=== PATIENT | female | born 1975 | race Caucasian/White ===

== ENCOUNTER 2023-09-26 08:41 | Outpatient (CLI) | payer OTHER, SELFPAY ==
[2023-09-26 18:29] LABS: Coronavirus 19, PCR Not Detected (NotDetected); Influenza A, PCR Not Detected (NotDetected); Influenza B, PCR Not Detected (NotDetected)
== END 2023-09-26 23:59 | disposition home or self-care (01) ==
LOC: LAB.DROPOF 09-27 09:53
PROVIDERS: PCP Nurse Practitioner; Visit Provider Nurse Practitioner
DX: R09.89 Other specified symptoms and signs involving the circulatory and respiratory systems (principal); R05.1 Acute cough; H92.03 Otalgia, bilateral
CPT/HCPCS: 87636

== ENCOUNTER 2023-10-17 18:00 | Outpatient (CLI) | payer OTHER, SELFPAY ==
[2023-10-17 18:24] LABS: Basophils # 0.3 K/mm3 (0-0.2); Basophils % 3.1 % (0.1-2.0); Eosinophils # 0.2 K/mm3 (0.0-0.4); Eosinophils % 2.2 % (0.1-12.0); Hematocrit 49.1 % (37.0-47.0); Hemoglobin 15.9 g/dL (12.2-16.2); Lymphocytes # 2.9 K/mm3 (0.7-4.5); Lymphocytes % 34.1 % (10-50); Mean Corpuscular HGB Conc 32.5 g/dL (31.8-35.4); Mean Corpuscular Hemoglobin 34.8 pg (27.0-31.2); Mean Corpuscular Volume 107.1 fl (81-99); Mean Platelet Volume 7.8 fl (7.4-10.4); Monocytes # 0.4 K/mm3 (0.1-1.0); Monocytes % 4.1 % (1.7-9.3); Neutrophils # 4.7 K/mm3 (1.8-7.8); Neutrophils % 56.5 % (37.0-80.0); Platelet Count 280 K/mm3 (142-424); Red Blood Count 4.59 M/mm3 (4.20-5.40); White Blood Count 8.4 K/mm3 (4.8-10.8)
[2023-10-17 18:50] LABS: Alanine Aminotransferase 108 U/L (12-78); Albumin Level 4.9 g/dl (3.5-5.0); Albumin/Globulin Ratio 1.6 (1.1-1.8); Alkaline Phosphatase 120 U/L (38-126); Anion Gap 17.3 mEq/L (5-15); Aspartate Amino Transferase 99 U/L (14-36); Bilirubin,Total 0.5 mg/dl (0.2-1.3); Blood Urea Nitrogen 12 mg/dl (7-17); Calcium 9.9 mg/dl (8.4-10.2); Carbon Dioxide 29 mmol/L (22.0-30.0); Chloride 102 mmol/L (98-107); Estimated Glomerular Filt Rate 89 ml/min (>60); GFR (African American) 108 ML/MIN (>60); Globulin 3.1 g/dL (1.3-3.2); Glucose 78 mg/dl (74-100); Potassium 4.3 mmoL/L (3.5-5.1); Sodium 144 mmol/L (136-145)
[2023-10-17 18:57] LABS: Ethyl Alcohol 308 mg/dl (0-10); Hemoglobin A1C 5.1 % (4.0-6.0)
[2023-10-17 19:05] LABS: 25-OH Vitamin D, Total 23.8 ng/mL (30-100)
[2023-10-17 19:24] LABS: Thyroid Stimulating Hormone 0.86 uIU/mL (0.465-4.68)
[2023-10-17 19:43] LABS: Vitamin B12 868 pg/mL (239-931)
[2023-10-19 13:47] LABS: Estradiol <5.0 pg/mL (.); LH 62.7 mIU/mL (.)
[2023-10-22 19:18] LABS: Estrogen 78 pg/mL (.)
== END 2023-10-17 23:59 | disposition home or self-care (01) ==
LOC: LAB.DROPOF 10-18 10:37
PROVIDERS: PCP Nurse Practitioner; Visit Provider Nurse Practitioner
DX: R53.83 Other fatigue (principal); F32.A Depression, unspecified; F10.20 Alcohol dependence, uncomplicated; R09.89 Other specified symptoms and signs involving the circulatory and respiratory systems
CPT/HCPCS: 80050; 80053; 80320; 82306; 82607; 82670; 82672; 83001; 83002; 83036; 84443; 85025; G0480

== ENCOUNTER 2023-11-13 10:04 | Outpatient (CLI) | payer OTHER, SELFPAY ==
[2023-11-13 18:50] LABS: Basophils # 0.1 K/mm3 (0-0.2); Basophils % 1.3 % (0.1-2.0); Eosinophils # 0.4 K/mm3 (0.0-0.4); Eosinophils % 4.7 % (0.1-12.0); Hematocrit 47.2 % (37.0-47.0); Hemoglobin 15.3 g/dL (12.2-16.2); Lymphocytes % 24.7 % (10-50); Mean Corpuscular HGB Conc 32.5 g/dL (31.8-35.4); Mean Corpuscular Hemoglobin 34.3 pg (27.0-31.2); Mean Corpuscular Volume 105.7 fl (81-99); Mean Platelet Volume 8.5 fl (7.4-10.4); Monocytes # 0.5 K/mm3 (0.1-1.0); Monocytes % 5.9 % (1.7-9.3); Neutrophils # 5.1 K/mm3 (1.8-7.8); Neutrophils % 63.4 % (37.0-80.0); Platelet Count 287 K/mm3 (142-424); Red Blood Count 4.47 M/mm3 (4.20-5.40); Red Cell Distribution Width 12.9 % (11.5-17.5)
[2023-11-13 19:00] LABS: Alanine Aminotransferase 23 U/L (12-78); Albumin Level 4.3 g/dl (3.5-5.0); Albumin/Globulin Ratio 1.7 (1.1-1.8); Alkaline Phosphatase 74 U/L (38-126); Anion Gap 15.1 mEq/L (5-15); Aspartate Amino Transferase 29 U/L (14-36); Bilirubin,Total 0.4 mg/dl (0.2-1.3); Blood Urea Nitrogen 16 mg/dl (7-17); Calcium 9.8 mg/dl (8.4-10.2); Carbon Dioxide 26 mmol/L (22.0-30.0); Chloride 104 mmol/L (98-107); Estimated Glomerular Filt Rate 89 ml/min (>60); GFR (African American) 108 ML/MIN (>60); Globulin 2.6 g/dL (1.3-3.2); Glucose 89 mg/dl (74-100); Potassium 4.1 mmoL/L (3.5-5.1); Sodium 141 mmol/L (136-145); Total Protein,Serum 6.9 g/dl (6.3-8.2)
== END 2023-11-13 23:59 | disposition home or self-care (01) ==
LOC: LAB.DROPOF 11-14 10:04
PROVIDERS: PCP Nurse Practitioner; Visit Provider Nurse Practitioner
DX: F10.20 Alcohol dependence, uncomplicated (principal); F32.A Depression, unspecified
CPT/HCPCS: 80053; 85025

== ENCOUNTER 2024-01-29 11:00 | Outpatient (CLI) | payer OTHER, SELFPAY ==
[2024-01-29 19:06] LABS: Alanine Aminotransferase 18 U/L (12-78); Albumin Level 3.8 g/dl (3.5-5.0); Albumin/Globulin Ratio 1.4 (1.1-1.8); Alkaline Phosphatase 71 U/L (38-126); Aspartate Amino Transferase 23 U/L (14-36); Bilirubin,Total 0.4 mg/dl (0.2-1.3); Blood Urea Nitrogen 12 mg/dl (7-17); Calcium 9.5 mg/dl (8.4-10.2); Carbon Dioxide 26 mmol/L (22.0-30.0); Chloride 109 mmol/L (98-107); Cholesterol 210 mg/dl (140-200); Estimated Glomerular Filt Rate 107 ml/min (>60); GFR (African American) 129 ML/MIN (>60); Globulin 2.7 g/dL (1.3-3.2); Glucose 109 mg/dl (74-100); HDL Cholesterol 52 mg/dl (40-60); Sodium 138 mmol/L (136-145); Total Protein,Serum 6.5 g/dl (6.3-8.2); Triglycerides 92 mg/dl (30-150); VLDL Cholesterol 18 mg/dL (0-40)
[2024-01-29 19:16] LABS: Direct LDL Cholesterol 119.81 mg/dL (100-129)
[2024-01-29 19:24] LABS: Hemoglobin A1C 5.1 % (4.0-6.0)
[2024-01-29 19:26] LABS: 25-OH Vitamin D, Total 47.8 ng/mL (30-100)
[2024-01-29 19:36] LABS: Thyroid Stimulating Hormone 2.03 uIU/mL (0.465-4.68)
[2024-01-29 19:55] LABS: Vitamin B12 952 pg/mL (239-931)
[2024-01-29 21:53] LABS: Basophils # 0.1 K/mm3 (0-0.2); Eosinophils # 0.3 K/mm3 (0.0-0.4); Eosinophils % 3.5 % (0.1-12.0); Hematocrit 48.4 % (37.0-47.0); Hemoglobin 14.9 g/dL (12.2-16.2); Lymphocytes # 1.9 K/mm3 (0.7-4.5); Lymphocytes % 20.2 % (10-50); Mean Corpuscular HGB Conc 30.7 g/dL (31.8-35.4); Mean Corpuscular Hemoglobin 31.3 pg (27.0-31.2); Mean Corpuscular Volume 101.8 fl (81-99); Monocytes # 0.6 K/mm3 (0.1-1.0); Monocytes % 6.2 % (1.7-9.3); Neutrophils # 6.6 K/mm3 (1.8-7.8); Neutrophils % 69.3 % (37.0-80.0); Platelet Count 278 K/mm3 (142-424); Red Blood Count 4.75 M/mm3 (4.20-5.40); Red Cell Distribution Width 12.9 % (11.5-17.5); White Blood Count 9.5 K/mm3 (4.8-10.8)
== END 2024-01-29 23:59 | disposition home or self-care (01) ==
LOC: LAB.DROPOF 01-30 10:27
PROVIDERS: PCP Nurse Practitioner; Visit Provider Nurse Practitioner
DX: Z13.220 Encounter for screening for lipoid disorders (principal); Z13.1 Encounter for screening for diabetes mellitus; F10.20 Alcohol dependence, uncomplicated; F32.A Depression, unspecified; E55.9 Vitamin D deficiency, unspecified; Z68.24 Body mass index [BMI] 24.0-24.9, adult
CPT/HCPCS: 80050; 80053; 80061; 82306; 82607; 83036; 84443; 85025

== ENCOUNTER 2024-07-01 14:55 | Outpatient (CLI) | payer OTHER, SELFPAY ==
[2024-07-01 18:10] LABS: Influenza A, PCR Not Detected (NotDetected); Influenza B, PCR Not Detected (NotDetected)
[2024-07-01 19:55] LABS: Coronavirus 19, PCR Detected (NotDetected)
== END 2024-07-01 23:59 | disposition home or self-care (01) ==
LOC: LAB.DROPOF 07-03 10:42
PROVIDERS: PCP Nurse Practitioner; Visit Provider Nurse Practitioner
DX: R11.2 Nausea with vomiting, unspecified (principal); R52 Pain, unspecified; J06.9 Acute upper respiratory infection, unspecified; Z72.0 Tobacco use
CPT/HCPCS: 87636

== ENCOUNTER 2024-12-24 15:21 | Outpatient (CLI) | payer OTHER, SELFPAY ==
[2024-12-24 19:08] LABS: Hematocrit 41.3 % (37.0-47.0); Hemoglobin 14.1 g/dL (12.2-16.2); Immature Granulocytes % 0.3 %; Mean Corpuscular HGB Conc 34.1 g/dL (31.8-35.4); Mean Corpuscular Hemoglobin 30.3 pg (27.0-31.2); Mean Corpuscular Volume 88.8 fl (81-99); Nucleated Red Blood Cells % 0 %; Platelet Count 178 K/mm3 (142-424); Red Blood Count 4.65 M/mm3 (4.20-5.40); Red Cell Distribution Width-SD 43.8 fL; White Blood Count 11.9 K/mm3 (4.8-10.8)
[2024-12-24 20:14] LABS: Alanine Aminotransferase 25 U/L (12-78); Albumin Level 4.7 g/dl (3.5-5.0); Albumin/Globulin Ratio 2.0 (1.1-1.8); Alkaline Phosphatase 76 U/L (38-126); Anion Gap 7.8 mEq/L (5-15); Aspartate Amino Transferase 33 U/L (14-36); Bilirubin,Total 0.3 mg/dl (0.2-1.3); Blood Urea Nitrogen 12 mg/dl (7-17); Calcium 9.5 mg/dl (8.4-10.2); Carbon Dioxide 28 mmol/L (22.0-30.0); Chloride 105 mmol/L (98-107); Creatinine,Serum 0.70 mg/dl (0.52-1.04); Estimated Glomerular Filt Rate 89 ml/min (>60); GFR (African American) 108 ML/MIN (>60); Globulin 2.3 g/dL (1.3-3.2); Glucose 84 mg/dl (74-100); Magnesium 2.0 mg/dl (1.6-2.3); Phosphorous 3.2 mg/dl (2.5-4.5); Potassium 3.8 mmoL/L (3.5-5.1); Sodium 137 mmol/L (136-145); Total Protein,Serum 7.0 g/dl (6.3-8.2)
[2024-12-24 20:31] LABS: Free T4 (Free Thyroxine) 1.14 ng/dl (0.78-2.19)
[2024-12-24 20:44] LABS: Thyroid Stimulating Hormone 1.13 uIU/mL (0.465-4.68)
[2024-12-24 21:04] LABS: Hepatitis C Ab Qual. W/ RFX NEGATIVE (Negative); Vitamin B12 981 pg/mL (239-931)
--- OUTSIDE RECORDS SUMMARY | 2024-12-25 10:57 | XMS_ITS | Patient Health Record ---
Author Organization [facility] enter Address [address] [id number] Care Team Providers Care Electric Golf Cart Repairers Name Role Phone Daiana Gonzales Unavailable [phone] ALLERGIES Allergen (clinical drug ingredient) Drug/Non Drug Allergy documented on EMR Reaction Allergy Type Onset Date Status codeine Codeine Sulfate Emesis Drug Allergy A ctive REASON FOR REFERRAL No Information SOCIAL HISTORY Tobacco Use: Social History Observation Description Date Details (start date - stop date) Current Smoker NA - NA Sex Assigned At : Social History Observation Description Sex Assigned At Unknown Smoking (13 and older): Question Answer Notes Smoking Status: Current Smoker PROBLEMS Problem Type ICD Code Onset Dates Problem Status W/U Status Risk SNOMED Code Notes Problem Chronic periodontitis (K05.30) Active confirmed Chronic periodontitis (5613446) PLAN OF TREATMENT No Information Insurance Providers Payer Name Payer Address Payer Phone Subscriber Number Group Number Insured Name Patient Relationship to Insured Coverage Start Date Coverage End Date MEDICAID MEDICAL [address] [place] [address] [id number] CORAZON JOHNSON Self - patient is the insured 9 3 MEDICA[place] [address] [place] [address] [id number] CORAZON JOHNSON Self - patient is the insured 9 3 MEDICAL (GENERAL) HISTORY Medical History History ICD Code ETOH use d/o Tobacco dependency Surgical History Surgery Date(Month/Year) L knee Hospitalization History Reason Date(Month/Year) [facility]--ICU for acute hypoxic r espiratory failure w/respiratory alkalosis 05/21/19-05/27/19
[2024-12-25 17:11] LABS: Adenovirus F 40/41, stool Not Detected (NotDetected); Clostridium Difficile A/B, PCR Not Detected (NotDetected); Cyclospora Cayetanesis Not Detected (NotDetected); Plesimonas Shigalloides, PCR Not Detected (NotDetected); Salmonella, PCR Not Detected (NotDetected); Shiga-like toxin E coli Not Detected (NotDetected); Shigella Enterovasive E coli Not Detected (NotDetected); Vibrio, PCR Not Detected (NotDetected); Yersinia Entercolitica, PCR Not Detected (NotDetected)
[2024-12-26 09:12] LABS: Hepatitis B Surface Antigen Negative (Negative)
== END 2024-12-24 23:59 | disposition home or self-care (01) ==
LOC: LAB.DROPOF 12-25 10:46
PROVIDERS: PCP Nurse Practitioner; Visit Provider Nurse Practitioner
DX: R19.7 Diarrhea, unspecified (principal); R63.4 Abnormal weight loss; Z11.59 Encounter for screening for other viral diseases
CPT/HCPCS: 80053; 82607; 83735; 84100; 84439; 84443; 85025; 86803; 87340; 87389; 87507

== ENCOUNTER 2024-12-30 08:01 | Outpatient (CLI) | payer OTHER, SELFPAY ==
--- NOTE | 2024-12-30 08:00 | US_ITS ---
FINAL REPORT TECHNIQUE: Ultrasound images of the thyroid were obtained. CLINICAL HISTORY: thyroid nodule FINDINGS: The right lobe of the thyroid measures 5.1 x 1.3 x 0.9 cm. It is normal in echogenicity. The left lobe of the thyroid measures 5.0 x 1.4 x 1.3 cm. It is normal in echogenicity. IMPRESSION: Unremarkable exam. Reviewed, Interpreted and Dictated by Delvin Lai MD Transcribed by Araceli Hansen Authenticated and [facility]
--- OUTSIDE RECORDS SUMMARY | 2024-12-30 08:04 | XMS_ITS | Patient Health Record ---
Author Organization [employer] enter Address [address] [place] [id number] Care Team Providers Care Executive Sales Manager Name Role Phone Daiana Gonzales Unavailable [phone] ALLERGIES Allergen (clinical drug ingredient) Drug/Non Drug [...] Notes Problem Chronic periodontitis (K05.30) Active confirmed PLAN OF TREATMENT No Information Insurance Providers Payer Name Payer Address Payer Phone Subscriber Number Group Number Insured Name Patient Relationship to Insured Coverage Start Date Coverage End Date MEDICAID MEDICAL [address] [place] [address] [id number] CORAZON JOHNSON Self - patient is the insured 9 3 MEDICAID [place]ENTAL [address] [place] [address] [phone] [id number] CORAZON JOHNSON Self - patient is the insured 9 3 MEDICAL (GENERAL) HISTORY Medical History History ICD Code ETOH use d/o Tobacco dependency Surgical History Surgery Date(Month/Year) L knee Hospitalization History Reason Date(Month/Year) [facility]--ICU for acute hypoxic r espiratory failure w/respiratory alkalosis 05/21/19-05/27/19
== END 2024-12-30 23:59 | disposition home or self-care (01) ==
LOC: RAD 08:02
PROVIDERS: PCP Nurse Practitioner; Visit Provider Nurse Practitioner
DX: E04.1 Nontoxic single thyroid nodule (principal)
CPT/HCPCS: 76536

== ENCOUNTER 2025-01-03 07:40 | Outpatient (CLI) | payer OTHER, SELFPAY ==
--- OUTSIDE RECORDS SUMMARY | 2025-01-03 07:44 | XMS_ITS | Patient Health Record ---
Author Organization [facility] enter Address [address] [place] [id number] Care Team Providers Care Cognos Name Role Phone Daiana Gonzales Unavailable [phone] ALLERGIES Allergen (clinical drug ingredient) Drug/Non Drug [...] Chronic periodontitis (K05.30) Active confirmed Chronic periodontitis (7524111) PLAN OF TREATMENT No Information Insurance Providers Payer Name Payer Address Payer Phone Subscriber Number Group Number Insured Name Patient Relationship to Insured Coverage Start Date Coverage End Date MEDICAID MEDICAL [address] [place] [address] [id number] CORAZON JOHNSON Self - patient is the insured 9 3 [place] [address] [place] [address] [id number] CORAZON JOHNSON Self - patient is the insured 9 3 MEDICAL (GENERAL) HISTORY Medical History History ICD Code ETOH use d/o Tobacco dependency Surgical History Surgery Date(Month/Year) L knee Hospitalization History Reason Date(Month/Year) [facility]--ICU for acute hypoxic r espiratory failure w/respiratory alkalosis 05/21/19-05/27/19
[2025-01-03] MEDS: SODIUM CHLORIDE 0.9% 10ML SYR (RAD ONLY) 10 ML IV (07:56)
[2025-01-03] MEDS: IOPAMIDOL-370 (76%);100ML BOTTLE 75 ML IV (07:56)
--- NOTE | 2025-01-03 08:00 | CT_ITS ---
FINAL REPORT TECHNIQUE: After the administration of intravenous contrast, axial images were obtained through the abdomen and pelvis by computed tomography. This study was performed with technique to keep radiation doses as low as reasonably achievable, (ALARA). Individualized dose reduction techniques using automated exposure control or adjustment of the MA and/or KV according to the patient's size were employed. CLINICAL HISTORY: history smoking, unintentional weight loss FINDINGS: Abdomen: The liver is normal in size and attenuation. Gallbladder is contracted. The spleen is unremarkable. The adrenals are normal. The pancreas is unremarkable. The kidneys enhance appropriately. The aorta is normal in caliber. There is no free fluid or adenopathy. Pelvis: The appendix is normal. There is a large amount of stool throughout the colon consistent with constipation. The urinary bladder is incompletely distended. There is no free fluid or adenopathy. Nodular areas are seen in the superior gluteal regions bilaterally within the subcutaneous fat measuring up to 4.5 cm which may be related to injection sites. IMPRESSION: Constipation. Presumed injection site densities in the subcutaneous fat of the superior gluteal regions. Reviewed, Interpreted and Dictated by Delvin Lai MD Transcribed by Araceli Hansen Authenticated and . [facility]
--- NOTE | 2025-01-03 08:00 | CT_ITS ---
FINAL REPORT TECHNIQUE: Routine axial images were obtained from the lung apices to below the diaphragm following IV contrast administration. Individualized dose reduction techniques using automated exposure control or adjustment of the mA and/or kV according to the patient size were employed. CLINICAL HISTORY: history smoking, unintentional weight loss FINDINGS: Mediastinal vasculature is adequately opacified. Small lymph nodes are seen in the axillary regions bilaterally measuring up to 1.2 cm. There is a 3 mm pleural-based nodule at the right lung base seen on image 60 of series 4. Lungs are otherwise clear. No pleural or pericardial effusion is seen. Heart is normal in size. IMPRESSION: 3 mm pleural-based nodule at the right lung base. Recommend 1 year follow-up per Fleischner criteria. Small bilateral axillary lymph nodes, favor reactive. Reviewed, Interpreted and Dictated by Delvin Lai MD Transcribed by Araceli Hansen Authenticated and [facility]
== END 2025-01-03 23:59 | disposition home or self-care (01) ==
LOC: RAD 07:42
PROVIDERS: PCP Nurse Practitioner; Visit Provider Nurse Practitioner
DX: K59.00 Constipation, unspecified (principal); R91.1 Solitary pulmonary nodule; R63.4 Abnormal weight loss; R19.7 Diarrhea, unspecified; Z87.891 Personal history of nicotine dependence; R93.3 Abnormal findings on diagnostic imaging of other parts of digestive tract
CPT/HCPCS: 71260; 74177; Q9967

== ENCOUNTER 2025-01-31 07:38 | Outpatient (CLI) | payer OTHER, SELFPAY ==
--- NOTE | 2025-01-31 07:30 | US_ITS ---
FINAL REPORT TECHNIQUE: Multiple transverse and longitudinal images CLINICAL HISTORY: right upper quad pain COMPARISON: None FINDINGS: The gallbladder shows no wall thickening, distention or stone disease. No biliary ductal dilatation is appreciated. No fluid collections are seen. Limited portions of the right liver are unremarkable. Limited portions of the right kidney are unremarkable. Pancreas is largely obscured. IMPRESSION: 1. No evidence of cholelithiasis 2. No evidence of biliary obstruction Reviewed, Interpreted and Dictated by Xu Santos MD Transcribed by Dulce Maria Barnard Authenticated and [facility]
== END 2025-01-31 23:59 | disposition home or self-care (01) ==
LOC: RAD 07:39
PROVIDERS: PCP Nurse Practitioner; Visit Provider Surgery
DX: R93.2 Abnormal findings on diagnostic imaging of liver and biliary tract (principal); R10.11 Right upper quadrant pain
CPT/HCPCS: 76705

== ENCOUNTER 2025-04-02 11:00 | Emergency (ER) | payer OTHER, SELFPAY ==
[2025-04-02 11:07] VITALS: BP 155/66; PULSE 65; RESP 16; TEMP 36.8; O2SAT 100; BMI 20.3
--- NOTE | 2025-04-02 11:18 | XR_ITS ---
FINAL REPORT CLINICAL HISTORY: Trauma; hyperextended x 1 wk, pain worsening FINDINGS: AP, lateral and oblique views of the left knee were obtained. There is no prior exam for comparison. There are changes from ACL reconstruction. There is no acute osseous abnormality of the left knee. Degenerative joint disease is noted. The soft tissues are normal. There is no joint effusion. IMPRESSION: No acute osseous abnormality of the left knee. Reviewed, Interpreted and Dictated by Albina Muniz MD Transcribed by Dulce Maria Barnard Authenticated and [facility]
--- NOTE | 2025-04-02 11:21 | PC.NURSE ---
report received from Luzma VALENTINE at this time.
--- NOTE | 2025-04-02 11:24 | ED_ITS ---
<Statement entered by Kyle Joy MD - 04/02/25 20:08> I was consulted by the JUANCARLOS, and we discussed the complexity of the problems being addressed. I approve the treatment and management plan for this patient's care in the emergency department, thus performing a substantive portion of the medical decision making. Kyle Joy MD Discharge Plan Disposition Patient Disposition: Home, Self-Care Prescriptions Prescriptions: New ketorolac 10 mg tablet 10 mg PO Q8H PRN (Reason: pain) 1 Days Qty: 20 0RF methocarbamol 750 mg tablet 750 mg PO Q8H Qty: 30 0RF No Action lidocaine 5 % adhesive patch,medicated 3 patch topical DAILY Qty: 90 5RF Rx Instructions: leave on most painful area for up to 12 hrs albuterol sulfate 90 mcg/actuation HFA aerosol inhaler 2 puff inhalation Q4-6H PRN (Reason: shortness of breath or wheezing) Qty: 8.5 3RF sertraline 50 mg tablet 50 mg PO DAILY Qty: 30 2RF Referrals Follow up/Referrals: Vicky Ryder APRN [Primary Care Provider, Family Practice] - See instructions Activity Restrictions/Add. Instructions Additional Instructions/Restrictions: Please use knee immobilizer and crutches as needed until you speak with or see your primary care provider. Please discuss an MRI for soft tissue injuries and physical therapy referral with your primary care provider. Return to the emergency department if knee begins to swell and you have fever, you have numbness or tingling above, below, around your knee, or with any other emergent medical complaints or concerns Clinical Impressions Clinical Impression: Acute knee pain Stand Alone Forms Stand Alone Forms: Work/School Release Instructions Patient Instructions: DI for Knee Pain Print Language Print Language: Tongan Discharge ED Provider: Kyle Joy General Adult HPI General Chief complaint: Extremity Injury, Lower Stated complaint: left knee pain Time Seen by Provider: 04/02/25 11:13 Mode of Arrival: Wheelchair Source of Information: Patient Limitations: No Limitations Description of Symptoms (Recalled from ER Triage Doc. by RN): Patient states she has had left knee pain x 1 week after she injured her left knee while working in her kitchen and hyperextended. Patient states she took 600 mg Motrin at 0830 this morning. History of Present Illness HPI narrative: Patient is a 49-year-old female who presents to the emergency department with complaints of pain in her left knee. Patient's dog hit her leg while she was walking approximately 1 week ago and her knee hyperextended. Patient states that pain is primarily on the left side of her left knee and it has been worsening ever since then. She has been taking ocop-[id number] pain medications and has a home bruise from a previous ACL injury that she has been using, but now states the pain is worsened to the point where she can barely bear any weight on the left leg. Patient states that pain radiates up and down the left side of her left leg. Patient denies any falls or any other injury or trauma, denies any recent fever, denies any other complaints at this time; denies chest pain, shortness of breath, abdominal pain. Onset (ago): week(s) Location: lower extremity Related Data Previous Rx's ?Medication ?Instructions ?Recorded lidocaine 5 % topical patch 3 patch topical DAILY #90 ea 01/29/24 albuterol sulfate 90 mcg/actuation 2 puff inhalation Q 4-6H PRN 10/08/24 aerosol inhaler shortness of breath or wheez ing #8.5 grams sertraline 50 mg tablet 50 mg PO DAILY #30 tabs 12/14 12/06 ketorolac 10 mg tablet 10 mg PO Q8H PRN pain 1 day #20 04/02/25 tabs methocarbamol 750 mg tablet 750 mg PO Q8H #30 tabs Allergies Allergy/AdvReac Type Severity Reaction Status Date / Time codeine Allergy Mild Other Verified 02/17/25 09:05 [facility] Disclaimer: The information contained in this section may have been updated after the patient was seen, as this information can be updated by other users. Medical History Lung nodule Abnormal CT scan, gallbladder Unintentional weight loss of 10% body weight within 6 months Personal history of smoking Weight loss of more than 10% body weight Diarrhea Vitamin D deficiency Depression Abnormal vasomotor function Alcohol dependence Fatigue Surgical History Hx of shoulder surgery Hx of hysterectomy Social History Smoking Status: Current every day smoker alcohol intake: current alcohol intake frequency: other current occupational status: employed Travel in the last 8 weeks?: None ROS Obtained: Yes Systems reviewed as appropriate & no additional complaints except as documented Physical Exam General General appearance: alert Head Head exam: atraumatic and normocephalic Eye Eye exam: Present normal appearance and PERRL Chest Chest inspection: Present normal inspection and symmetric chest wall rise Respiratory Respiratory exam: Present normal lung sounds bilaterally; Absent respiratory distress Cardiovascular Cardiovascular exam: Present regular rate and normal rhythm Abdominal Exam Abdominal exam: Present soft and normal bowel sounds; Absent distention or tenderness Expanded Lower Extremity Exam Left: Knee exam: Present tenderness; Absent full ROM, swelling or effusion Comment: Patient has pain in posterior and lateral knee with flexion and extension of left foot Neurological Exam Neurological exam: Present alert and oriented X3 Psychiatric Psychiatric exam: Present normal affect and normal mood Skin Skin exam: Present warm and dry Medical Decision Making Medical Records Screening: Per USPSTF and CDC recommendations, given the prevalence of disease in our region, it is our hospital?s policy to screen for HIV and viral Hepatitis for all patients aged 18 and over and those with ongoing risk factors. Jovan Inquiry Pt receiving controlled substance: No Vital Signs: 04/02/25 11:07 04/02/25 13:19 Temperature 98.2 F 98.1 F Temperature Source Oral Oral Pulse Rate 85 Pulse Rate [Left Brachial] 65 Respiratory Rate 16 15 Blood Pressure 135/85 Blood Pressure [Left Arm] 155/66 H Blood Pressure Mean [Left Arm] 95 Blood Pressure Source Automatic Cuff Blood Pressure Source [Left Arm] Automatic Cuff Blood Pressure Position Sitting Blood Pressure Position [Left Arm] Sitting 02 Sat by Pulse Oximetry 100 Oxygen Delivery Method Room Air Room Air Orders (Tests/Meds): ED MEDICATIONS Discontinued Medications Generic Name Dose Route Start Last Admin Trade Name Freq PRN Reason Stop Dose Admin Hydrocodone Bitart/Acetaminophen 1 tab 04/02/25 11:18 04/02/25 11:37 Hydrocodone/Apap 5/325 Mg Tablet PO 04/02/25 11:19 1 tab ONCE ONE Administration Ondansetron HCl 4 mg 04/02/25 11:24 04/02/25 11:37 Ondansetron 4mg Odt SL 04/02/25 11:25 4 mg ONCE ONE Administration ORDERS Category Date Time Status XR knee LT 3V Stat Exams 04/02/25 11:18 Completed Medical Decision Narrative: In summary patient is an 49-year-old female who presents to the emergency department for evaluation of knee pain. Patient is hemodynamically stable upon arrival, afebrile. Patient's physical exam is unremarkable except for pain in the left knee. Pain on palpation noted circumferentially around knee, and. Differential diagnosis includes knee dislocation, fracture, soft tissue injury. Initial workup will be conducted with x-rays. Initial interventions include oral pain medication. Initial workup reviewed by me showed plain films of knee with no remarkable findings. Upon repeat evaluation patient was stable and appropriate for discharge. Knee immobilizer and crutches were applied and patient was able to ambulate. Prescriptions for oral ketorolac and Robaxin sent to patient's pharmacy of choice. Plan of care is for patient to be discharged from ED to home to follow-up with primary care provider and discussed physical therapy and additional imaging such as MRI to evaluate for soft tissue injury. Patient verbalized understanding of and is amenable to these plans of care. Return precautions discussed and discharge instructions. I informally interpreted the patient's knee x-ray and found no remarkable or co ncerning findings. EKG and labs considered but not indicated at this time due to the patient's complaint, presentation, and imaging findings during ED course. Critical Care Critical Care Time Critical Care Time: No
[2025-04-02] MEDS: ONDANSETRON 4MG ODT 4 MG SL (11:37)
[2025-04-02] MEDS: HYDROCODONE/APAP 5/325 MG TABLET 1 TAB PO (11:37)
--- OUTSIDE RECORDS SUMMARY | 2025-04-02 12:29 | XMS_ITS | Patient Health Record ---
Author Organization [employer] enter Address [address] [place] [address] Care Team Providers Care Tea Room Manager Name Role Phone Daiana Singh Unavailable [phone] ALLERGIES Allergen (clinical drug ingredient) Drug/Non Drug [...] Chronic periodontitis (K05.30) Active confirmed Chronic periodontitis ([id number]) PLAN OF TREATMENT No Information Insurance Providers Payer Name Payer Address Payer Phone Subscriber Number Group Number Insured Name Patient Relationship to Insured Coverage Start Date Coverage End Date MEDICAID MEDICAL [address] [place] [address] [id number] CORAZON JOHNSON Self - patient is the insured 9 3 [place]ICA[place] [address] [place] [address] [id number] CORAZON JOHNSON Self - patient is the insured 9 3 MEDICAL (GENERAL) HISTORY Medical History History ICD Code ETOH use d/o Tobacco dependency Surgical History Surgery Date(Month/Year) L knee Hospitalization History Reason Date(Month/Year) [facility]--ICU for acute hypoxic r espiratory failure w/respiratory alkalosis 05/21/19-05/27/19
[2025-04-02 13:19] VITALS: BP 135/85; PULSE 85; RESP 15; TEMP 36.7; O2SAT 99
== END 2025-04-02 13:20 | disposition home or self-care (01) ==
PROVIDERS: Emergency Provider Student in an Organized Health Care Education/Training Program; PCP Nurse Practitioner
DX: M25.562 Pain in left knee (principal); F17.210 Nicotine dependence, cigarettes, uncomplicated; W54.1XXA Struck by dog, initial encounter
CPT/HCPCS: 73562; 99283; Q0162

== ENCOUNTER 2025-04-07 06:53 | Outpatient (CLI) | payer OTHER, SELFPAY ==
--- OUTSIDE RECORDS SUMMARY | 2025-04-07 06:56 | XMS_ITS | Patient Health Record ---
Author Organization [employer] enter Address [address] [place] [address] Care Team Providers Care Air Cargo Ground Crew Supervisor Name Role Phone Daiana Singh Unavailable [phone] ALLERGIES Allergen (clinical drug ingredient) Drug/Non Drug [...] Chronic periodontitis (K05.30) Active confirmed Chronic periodontitis (3968554) PLAN OF TREATMENT No Information Insurance Providers Payer Name Payer Address Payer Phone Subscriber Number Group Number Insured Name Patient Relationship to Insured Coverage Start Date Coverage End Date MEDICAID MEDICAL [address] [place] [address] [phone] [id number] CORAZON JOHNSON Self - patient is the insured 9 3 MEDICAID [place]ENT[place] [address] [place] [id number] CORAZON JOHNSON Self - patient is the insured 9 3 MEDICAL (GENERAL) HISTORY Medical History History ICD Code ETOH use d/o Tobacco dependency Surgical History Surgery Date(Month/Year) L knee Hospitalization History Reason Date(Month/Year) [facility]--ICU for acute hypoxic r espiratory failure w/respiratory alkalosis 05/21/19-05/27/19
--- NOTE | 2025-04-07 07:00 | MR_ITS ---
FINAL REPORT TECHNIQUE: Multiplanar and multisequence imaging the left knee was obtained without contrast. CLINICAL HISTORY: left knee pain, nki, hurts to straighten knee COMPARISON: None FINDINGS: There is degradation of overall image quality secondary to motion artifact. Bones: There is no acute fracture or marrow edema. Degenerative joint disease is present. There is a partial-thickness cartilage defect involving the medial femoral condyle. Menisci: The lateral meniscus is intact. The posterior horn of the medial meniscus is small and contains abnormal signal, suggesting a partial meniscectomy, although a tear is not excluded. Ligaments: There are changes of anterior cruciate ligament reconstruction. The ACL graft is intact. No cruciate or collateral ligament tear is present. Tendons/Muscles: The quadriceps and patellar tendons are intact. The biceps femoris tendon and iliotibial tract are intact. The popliteus tendon is unremarkable. Other: A small joint effusion is present. Remaining soft tissues are normal. IMPRESSION: Degenerative joint disease and a partial thickness cartilage defect of the medial femoral condyle. Changes of ACL reconstruction with an intact ACL graft. Abnormal signal and a small posterior horn of the medial meniscus that may be secondary to a partial meniscectomy, although a tear is not excluded. Reviewed, Interpreted and Dictated by Albina Muniz MD Transcribed by Bhumi Marie Authenticated and [facility]
== END 2025-04-07 23:59 | disposition home or self-care (01) ==
LOC: RAD 06:54
PROVIDERS: PCP Nurse Practitioner; Visit Provider Nurse Practitioner Family
DX: M17.12 Unilateral primary osteoarthritis, left knee (principal); S83.8X2A Sprain of other specified parts of left knee, initial encounter; R93.6 Abnormal findings on diagnostic imaging of limbs; Z98.890 Other specified postprocedural states
CPT/HCPCS: 73721